=== PATIENT | male | born 1985 | race American Indian/Alaskan Native ===

== ENCOUNTER 2020-01-23 04:53 | Emergency (ER) | payer SELFPAY ==
[2020-01-23 05:05] VITALS: BP 128/73
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
== END 2020-01-23 06:47 | disposition home or self-care (01) ==
LOC: ED 04:53
DX: S80.01XA Contusion of right knee, initial encounter (principal); D57.3 Sickle-cell trait; F17.200 Nicotine dependence, unspecified, uncomplicated; Z88.0 Allergy status to penicillin; Z91.030 Bee allergy status; V89.2XXA Person injured in unspecified motor-vehicle accident, traffic, initial encounter; Y93.89 Activity, other specified; Y92.410 Unspecified street and highway as the place of occurrence of the external cause; Y99.8 Other external cause status
CPT/HCPCS: 99283